=== PATIENT | female | born 1940 | race Caucasian/White ===

== ENCOUNTER 2023-09-27 17:09 | Inpatient (IN) | payer MEDICARE ==
[2023-09-27] MEDS ORDERED: LORazepam 2 MG/ML SYR.(CARPUJECT) ONE ×2 (17:15→20:03)
[2023-09-27 17:36] LABS: #Eosinphils 0.1 thou/uL (0.0-0.7); #Monocytes 0.2 thou/uL (0.11-0.59); #Neutrophils 9.1 thou/uL (1.40-6.50); %Basophils 0.4 % (0.0-1.0); %Eosinophils 0.6 % (0.0-10.0); %Lymphocytes 6.1 % (21.0-51.0); %Monocytes 2.4 % (0.0-10.0); %Neutrophils 90.2 % (42.0-75.0); Hematocrit 43.7 % (36.0-47.0); Hemoglobin 14.8 g/dL (12.0-16.0); Mean Corpuscular HGB CONC 33.9 g/dL (32.0-36.0); Mean Corpuscular Hemoglobin 31.1 pg (27.0-31.0); Mean Corpuscular Volume 91.8 fl (78.0-98.0); Mean Platelet Volume 12.4 fL (7.4-10.4); Platelet Count 163 10x3/uL (130-400); Red Blood Cell (RBC) Count 4.76 mill/uL (4.20-5.40); White Blood Cell (WBC) Count 10.1 10x3/uL (4.8-10.8)
[2023-09-27 18:28] LABS: ALT (SGPT) 9 U/L (8-55); AST (SGOT) 11 U/L (5-34); Acetaminophen Less than 10 mcg/mL (10.0-30.0); Albumin 4.3 g/dL (3.4-4.8); Alcohol Less than 10.0 mg/dL (Less than 10); Alkaline Phosphatase 116 U/L (40-110); Anion Gap 19 mmol/L (10-20); BUN (Urea Nitrogen) 30 mg/dL (9.8-20.1); Bilirubin, Total 0.4 mg/dL (0.2-1.2); Calc. Creatinine Clearance 0 mL/min (70-130); Calcium 9.8 mg/dL (7.8-10.44); Carbon Dioxide 17 mmol/L (23-31); Chloride 97 mmol/L (98-107); Estimated GFR 20; Globulin 3.6 g/dL (2.4-3.5); Lipase 17 U/L (8-78); Potassium 4.1 mmol/L (3.5-5.1); Protein, Total 7.9 g/dL (5.8-8.1); Salicylate Less than 8.0 mg/dL (15.0-30.0); Sodium 129 mmol/L (136-145)
[2023-09-27 18:34] LABS: Glucose 647 mg/dL (83-110); Troponin I 0.061 ng/mL (< 0.028)
[2023-09-27 18:46] LABS: Actual Bicarbonate (HCO3v) 15.8 mEq/L (22-28); Base Excess -9.1 mEq/L (-2.0 to +3.0); Calcium, Ionized (venous) 1.13 mmol/L (1.16-1.32); Chloride (VBG) 96 mmol/L (98-106); Hematocrit-VBG 43 % (36.0-47.0); Hemoglobin (Hb) 14.7 g/dL (11.7-16.1); Potassium (VBG) 4.05 mmol/L (3.70-5.30); Sodium 133 mmol/L (133-146); pH (venous) 7.317 (7.32-7.43)
[2023-09-27] MEDS ORDERED: Potassium Chloride 20 MEQ/100 ML PREMIX BAG ONE (18:58)
[2023-09-27] MEDS ORDERED: INSULIN REGULAR IN 0.9 % NACL 100 UNITS/100 ML BAG ONE (19:01)
[2023-09-27 19:28] LABS: Amphetamine Not Detected (NotDetected); Barbiturates Screen Not Detected (NotDetected); Benzodiazepine Screen Not Detected (NotDetected); Cocaine Metabolite Screen Not Detected (NotDetected); Methadone Not Detected (NotDetected); Methamphetamine Not Detected (NotDetected); Opiate Screen Not Detected (NotDetected); Oxycodone Screen Not Detected (NotDetected); Phencyclidine (PCP) Not Detected (NotDetected); THC/Cannabinoid Screen Not Detected (NotDetected); Tricyclic Screen Not Detected (NotDetected)
[2023-09-27 19:44] LABS: Bacteria/HPF None Seen HPF (None Seen); Bilirubin Negative (Negative); Blood, Urine 2+ (Negative); CAUTI Indications for Culture Alt mental st,lethar; Clarity Clear (Clear); Glucose, Urine (Dipstick) Greater than 1000 mg/dL (Negative); Ketone, Urine 20 mg/dL (Negative); Leukocyte 25 Leu/uL (Negative); Nitrite Negative (Negative); Protein, Urine (Dipstick) 200 mg/dL (Neg-Trace); RBC/HPF 0-3 HPF (0-3); Specific Gravity, Urine 1.022 (1.002-1.036); Squamous Epithelial 0-3 HPF (0-3); Urobilinogen Normal mg/dL (Less than 2)
[2023-09-27 19:46] LABS: Urine Culture Reflex No No
[2023-09-27] MEDS ORDERED: NS 0.9% w/ 40 MEQ KCL 1,000 ML IV SCH (20:00)
[2023-09-27] MEDS ORDERED: HUMULIN R 100 UNITS in Sodium Chloride 0.9% 100 ML IVPB SCH ×2 (20:00→20:15)
[2023-09-27] MEDS ORDERED: Sodium Chloride 0.9% 1,000 ML IV PRN ×4 (20:11)
[2023-09-27] MEDS ORDERED: Ondansetron PF 4 MG/2 ML Vial IVP PRN (20:11)
[2023-09-27] MEDS ORDERED: Acetaminophen 650 MG Suppository PR PRN (20:11)
[2023-09-27] MEDS ORDERED: NS 0.9% w/ 20 MEQ KCL 1,000 ML IV PRN ×2 (20:11)
[2023-09-27] MEDS ORDERED: Dextrose 50% Abboject 50 ML SYRINGE SLOW IVP PRN (20:11)
[2023-09-27] MEDS ORDERED: Dextrose 5 %-0.45 % NaCl 1,000 ML IV PRN (20:11)
[2023-09-27] MEDS ORDERED: D5 1/2 NS w/20 mEq KCL 1,000 ML IV PRN (20:11)
[2023-09-27] MEDS ORDERED: Electrolyte Replacement Protocol 1 EACH IVPB SCH (20:11)
[2023-09-27 22:12] LABS: Lactic Acid 2.3 mmol/L (0.5-2.2)
[2023-09-27 22:17] LABS: Anion Gap 16 mmol/L (10-20); BUN (Urea Nitrogen) 29 mg/dL (9.8-20.1); Calc. Creatinine Clearance 0 mL/min (70-130); Calcium 9.1 mg/dL (7.8-10.44); Carbon Dioxide 17 mmol/L (23-31); Chloride 104 mmol/L (98-107); Estimated GFR 22; Magnesium 1.9 mg/dL (1.6-2.6); Potassium 3.5 mmol/L (3.5-5.1); Sodium 133 mmol/L (136-145)
[2023-09-27 22:24] LABS: Glucose 511 mg/dL (83-110)
[2023-09-27 23:20] VITALS: BMI 26.9
[2023-09-27] MEDS: Lactated Ringer's 1,000 ML IV SCH (23:21)
[2023-09-27] MEDS ORDERED: Magnesium 2 GM/50 ML(in water) 2 GM in Premix 1 BAG IVPB SCH (23:59)
[2023-09-28] MEDS: Potassium Chloride 20 MEQ in Premix 1 BAG IVPB SCH ×2 (01:12→03:21)
[2023-09-28 01:30] LABS: Anion Gap 14 mmol/L (10-20); BUN (Urea Nitrogen) 28 mg/dL (9.8-20.1); Calc. Creatinine Clearance 26 mL/min (70-130); Carbon Dioxide 16 mmol/L (23-31); Chloride 108 mmol/L (98-107); Estimated GFR 25; Glucose 364 mg/dL (83-110); Potassium 3.4 mmol/L (3.5-5.1); Sodium 135 mmol/L (136-145)
[2023-09-28 05:35] LABS: Anion Gap 15 mmol/L (10-20); BUN (Urea Nitrogen) 28 mg/dL (9.8-20.1); Calc. Creatinine Clearance 27 mL/min (70-130); Calcium 9.2 mg/dL (7.8-10.44); Carbon Dioxide 14 mmol/L (23-31); Chloride 110 mmol/L (98-107); Estimated GFR 26; Glucose 320 mg/dL (83-110); Potassium 3.8 mmol/L (3.5-5.1); Sodium 135 mmol/L (136-145)
[2023-09-28] MEDS: Heparin 5,000 UNITS/ML VIAL SC SCH ×2 (08:22→20:42)
[2023-09-28] MEDS: Lactated Ringer's 1,000 ML IV SCH (08:22)
[2023-09-28] MEDS: Famotidine/PF 20 mg/2ml Vial SLOW IVP SCH (08:22)
[2023-09-28] MEDS ORDERED: FLU VACC QS2023(65UP)/MF59C/PF 60 MCG/0.5 ML SYRINGE IM ONE (09:00)
[2023-09-28] MEDS ORDERED: Dextrose 5% in Water 1,000 ML IV PRN (11:30)
[2023-09-28] MEDS ORDERED: Glucagon 1 MG/ML KIT IM PRN (11:30)
[2023-09-28] MEDS ORDERED: HumaLOG 300 UNITS/3 ML VIAL SC PRN (11:30)
[2023-09-28] MEDS: Dextrose 50% Abboject 50 ML SYRINGE IVP PRN ×2 (17:27→17:28)
[2023-09-28] MEDS ORDERED: Dextrose 5 % And 0.9 % NaCl 1,000 ML IV SCH (17:30)
[2023-09-28 17:42] LABS: #Monocytes 0.8 thou/uL (0.11-0.59); #Neutrophils 9.9 thou/uL (1.40-6.50); %Basophils 0.3 % (0.0-1.0); %Lymphocytes 15.5 % (21.0-51.0); %Monocytes 6.3 % (0.0-10.0); %Neutrophils 77.4 % (42.0-75.0); Hematocrit 38.1 % (36.0-47.0); Hemoglobin 12.9 g/dL (12.0-16.0); Mean Corpuscular HGB CONC 33.9 g/dL (32.0-36.0); Mean Corpuscular Hemoglobin 30.7 pg (27.0-31.0); Mean Corpuscular Volume 90.7 fl (78.0-98.0); Mean Platelet Volume 11.8 fL (7.4-10.4); Platelet Count 222 10x3/uL (130-400); RBC Distribution Width 12.4 % (11.5-14.5); White Blood Cell (WBC) Count 12.7 10x3/uL (4.8-10.8)
[2023-09-28] MEDS ORDERED: Aspirin Chewable 81 MG TAB PO SCH (17:45)
[2023-09-28 18:15] LABS: Anion Gap 14 mmol/L (10-20); BUN (Urea Nitrogen) 27 mg/dL (9.8-20.1); Calc. Creatinine Clearance 31 mL/min (70-130); Calcium 9.1 mg/dL (7.8-10.44); Carbon Dioxide 16 mmol/L (23-31); Chloride 111 mmol/L (98-107); Estimated GFR 31; Glucose 232 mg/dL (83-110); Potassium 3.8 mmol/L (3.5-5.1); Sodium 137 mmol/L (136-145)
[2023-09-28] MEDS: Dextrose 5 % And 0.9 % NaCl 1,000 ML IV SCH (20:12)
[2023-09-28] MEDS: HumaLOG 300 UNITS/3 ML VIAL SC PRN (20:42)
[2023-09-29 04:08] LABS: Anion Gap 12 mmol/L (10-20); BUN (Urea Nitrogen) 25 mg/dL (9.8-20.1); Calc. Creatinine Clearance 32 mL/min (70-130); Carbon Dioxide 17 mmol/L (23-31); Chloride 113 mmol/L (98-107); Estimated GFR 32; Glucose 137 mg/dL (83-110); Potassium 3.4 mmol/L (3.5-5.1); Sodium 139 mmol/L (136-145)
[2023-09-29] MEDS: Dextrose 5 % And 0.9 % NaCl 1,000 ML IV SCH ×2 (04:12→22:37)
[2023-09-29] MEDS ORDERED: Potassium Chloride 20 MEQ TAB PO SCH (08:00)
[2023-09-29] MEDS: Famotidine/PF 20 mg/2ml Vial SLOW IVP SCH (08:11)
[2023-09-29] MEDS: Heparin 5,000 UNITS/ML VIAL SC SCH ×2 (08:11→21:50)
[2023-09-29] MEDS ORDERED: Aspirin Chewable 81 MG TAB PO SCH (09:00)
[2023-09-29] MEDS: HumaLOG 300 UNITS/3 ML VIAL SC PRN ×3 (13:28→21:57)
[2023-09-29] MEDS ORDERED: hydrALAZINE 25 MG TAB PO SCH (13:45)
[2023-09-29] MEDS: Simvastatin 10 MG TAB PO SCH (21:50)
[2023-09-29] MEDS: hydrALAZINE 25 MG TAB PO SCH (21:50)
[2023-09-30] MEDS ORDERED: Dextrose 5% in Water 1,000 ML IV PRN (02:02)
[2023-09-30] MEDS ORDERED: Ondansetron ODT 4 MG TAB PO PRN (04:18)
[2023-09-30] MEDS: Ondansetron ODT 4 MG TAB PO PRN ×2 (04:39→19:37)
[2023-09-30] MEDS: HumaLOG 300 UNITS/3 ML VIAL SC PRN ×4 (04:46→17:14)
[2023-09-30 06:26] LABS: Anion Gap 12 mmol/L (10-20); BUN (Urea Nitrogen) 21 mg/dL (9.8-20.1); Calc. Creatinine Clearance 31 mL/min (70-130); Calcium 8.7 mg/dL (7.8-10.44); Carbon Dioxide 21 mmol/L (23-31); Chloride 107 mmol/L (98-107); Estimated GFR 31; Glucose 236 mg/dL (83-110); Potassium 3.5 mmol/L (3.5-5.1); Sodium 136 mmol/L (136-145)
[2023-09-30] MEDS ORDERED: Potassium Chloride 20 MEQ TAB PO SCH (08:00)
[2023-09-30] MEDS: Heparin 5,000 UNITS/ML VIAL SC SCH ×2 (09:00→21:15)
[2023-09-30] MEDS: Losartan 25 MG TAB PO SCH (09:00)
[2023-09-30] MEDS: Acetaminophen 325 MG TAB PO PRN (09:00)
[2023-09-30] MEDS: Aspirin 81 mg Enteric Coated Tablet PO SCH (09:02)
[2023-09-30] MEDS: Fluticasone Propionate Nasal Spray 16 gm Bottle NASAL SCH (09:02)
[2023-09-30] MEDS: hydrALAZINE 25 MG TAB PO SCH ×2 (09:02→21:15)
[2023-09-30] MEDS: Famotidine/PF 20 mg/2ml Vial SLOW IVP SCH (09:19)
[2023-09-30] MEDS ORDERED: Sodium Chloride Nasal 15 GM TUBE EA NARE PRN (12:33)
[2023-09-30] MEDS ORDERED: Sodium Chloride 0.65% Nasal 44 ML BOT EA NARE PRN (19:49)
[2023-09-30] MEDS: Simvastatin 10 MG TAB PO SCH (21:15)
[2023-10-01] MEDS: HumaLOG 300 UNITS/3 ML VIAL SC PRN ×5 (01:13→21:25)
[2023-10-01 06:12] LABS: Anion Gap 12 mmol/L (10-20); BUN (Urea Nitrogen) 18 mg/dL (9.8-20.1); Calc. Creatinine Clearance 28 mL/min (70-130); Calcium 8.6 mg/dL (7.8-10.44); Carbon Dioxide 19 mmol/L (23-31); Chloride 107 mmol/L (98-107); Estimated GFR 27; Glucose 278 mg/dL (83-110); Potassium 3.6 mmol/L (3.5-5.1); Sodium 134 mmol/L (136-145)
[2023-10-01] MEDS: Aspirin 81 mg Enteric Coated Tablet PO SCH (09:15)
[2023-10-01] MEDS: Famotidine/PF 20 mg/2ml Vial SLOW IVP SCH (09:16)
[2023-10-01] MEDS: Fluticasone Propionate Nasal Spray 16 gm Bottle NASAL SCH (09:16)
[2023-10-01] MEDS: Loratadine 10 MG TAB PO SCH (09:19)
[2023-10-01] MEDS: Losartan 25 MG TAB PO SCH (09:19)
[2023-10-01] MEDS: hydrALAZINE 25 MG TAB PO SCH ×2 (09:19→21:26)
[2023-10-01] MEDS: Pioglitazone HCl 15 MG TAB PO SCH (09:20)
[2023-10-01] MEDS: Heparin 5,000 UNITS/ML VIAL SC SCH ×2 (09:21→21:26)
[2023-10-01] MEDS ORDERED: Famotidine 20 MG TAB PO SCH (10:30)
[2023-10-01] MEDS: Glimepiride 4 MG TAB PO SCH (17:44)
[2023-10-01] MEDS: Insulin Glargine 30 UNITS/0.3 ML VIAL SC SCH (21:25)
[2023-10-01] MEDS: Simvastatin 10 MG TAB PO SCH (21:27)
[2023-10-02 04:30] LABS: #Basophils 0.1 thou/uL (0.0-0.2); #Eosinphils 0.2 thou/uL (0.0-0.7); #Monocytes 0.6 thou/uL (0.11-0.59); %Basophils 0.6 % (0.0-1.0); %Eosinophils 2.6 % (0.0-10.0); %Lymphocytes 23.6 % (21.0-51.0); %Monocytes 7.7 % (0.0-10.0); %Neutrophils 65.1 % (42.0-75.0); Hematocrit 38.3 % (36.0-47.0); Mean Corpuscular HGB CONC 33.9 g/dL (32.0-36.0); Mean Corpuscular Hemoglobin 30.2 pg (27.0-31.0); Mean Corpuscular Volume 89.1 fl (78.0-98.0); Mean Platelet Volume 12.2 fL (7.4-10.4); Platelet Count 219 10x3/uL (130-400); RBC Distribution Width 12.8 % (11.5-14.5); White Blood Cell (WBC) Count 7.7 10x3/uL (4.8-10.8)
[2023-10-02 04:40] LABS: Hemoglobin A1c 10.9 % (4.0-6.0)
[2023-10-02 04:59] LABS: Anion Gap 13 mmol/L (10-20); BUN (Urea Nitrogen) 21 mg/dL (9.8-20.1); Calc. Creatinine Clearance 28 mL/min (70-130); Calcium 8.7 mg/dL (7.8-10.44); Carbon Dioxide 20 mmol/L (23-31); Chloride 108 mmol/L (98-107); Estimated GFR 27; Glucose 128 mg/dL (83-110); Potassium 3.6 mmol/L (3.5-5.1); Sodium 137 mmol/L (136-145)
[2023-10-02] MEDS: Famotidine 20 MG TAB PO SCH (10:55)
[2023-10-02] MEDS: Glimepiride 4 MG TAB PO SCH ×2 (10:55→16:49)
[2023-10-02] MEDS: Aspirin 81 mg Enteric Coated Tablet PO SCH (10:55)
[2023-10-02] MEDS: Loratadine 10 MG TAB PO SCH (10:55)
[2023-10-02] MEDS: hydrALAZINE 25 MG TAB PO SCH ×2 (10:55→20:46)
[2023-10-02] MEDS: Insulin Glargine 30 UNITS/0.3 ML VIAL SC SCH ×2 (10:56→20:46)
[2023-10-02] MEDS: Acetaminophen 325 MG TAB PO PRN ×3 (10:56→21:01)
[2023-10-02] MEDS: Heparin 5,000 UNITS/ML VIAL SC SCH ×2 (10:56→20:46)
[2023-10-02] MEDS: Fluticasone Propionate Nasal Spray 16 gm Bottle NASAL SCH (10:57)
[2023-10-02] MEDS: Losartan 25 MG TAB PO SCH (12:13)
[2023-10-02] MEDS: Pioglitazone HCl 15 MG TAB PO SCH (12:13)
[2023-10-02] MEDS: HumaLOG 300 UNITS/3 ML VIAL SC PRN (12:50)
[2023-10-02] MEDS: Simvastatin 10 MG TAB PO SCH (20:46)
[2023-10-03 06:37] LABS: Anion Gap 13 mmol/L (10-20); BUN (Urea Nitrogen) 21 mg/dL (9.8-20.1); Calc. Creatinine Clearance 27 mL/min (70-130); Calcium 9.1 mg/dL (7.8-10.44); Carbon Dioxide 21 mmol/L (23-31); Chloride 110 mmol/L (98-107); Estimated GFR 25; Glucose 145 mg/dL (83-110); Potassium 3.6 mmol/L (3.5-5.1); Sodium 140 mmol/L (136-145)
[2023-10-03] MEDS: Heparin 5,000 UNITS/ML VIAL SC SCH ×2 (08:34→20:01)
[2023-10-03] MEDS: Glimepiride 4 MG TAB PO SCH ×2 (08:34→16:23)
[2023-10-03] MEDS: Aspirin 81 mg Enteric Coated Tablet PO SCH (08:35)
[2023-10-03] MEDS: Insulin Glargine 30 UNITS/0.3 ML VIAL SC SCH ×2 (08:35→20:01)
[2023-10-03] MEDS: hydrALAZINE 25 MG TAB PO SCH ×2 (08:35→19:37)
[2023-10-03] MEDS: Fluticasone Propionate Nasal Spray 16 gm Bottle NASAL SCH (08:35)
[2023-10-03] MEDS: Famotidine 20 MG TAB PO SCH (08:35)
[2023-10-03] MEDS: Ondansetron ODT 4 MG TAB PO PRN (13:17)
[2023-10-03] MEDS: Simvastatin 10 MG TAB PO SCH (19:37)
[2023-10-03] MEDS: Acetaminophen 325 MG TAB PO PRN (19:38)
[2023-10-04 08:40] LABS: Anion Gap 11 mmol/L (10-20); BUN (Urea Nitrogen) 19 mg/dL (9.8-20.1); Calc. Creatinine Clearance 27 mL/min (70-130); Calcium 8.9 mg/dL (7.8-10.44); Carbon Dioxide 23 mmol/L (23-31); Chloride 109 mmol/L (98-107); Estimated GFR 26; Glucose 77 mg/dL (83-110); Potassium 3.9 mmol/L (3.5-5.1); Sodium 139 mmol/L (136-145)
[2023-10-04] MEDS: Aspirin 81 mg Enteric Coated Tablet PO SCH (09:21)
[2023-10-04] MEDS: hydrALAZINE 25 MG TAB PO SCH ×2 (09:21→20:29)
[2023-10-04] MEDS: Glimepiride 4 MG TAB PO SCH ×2 (09:21→16:59)
[2023-10-04] MEDS: Loratadine 10 MG TAB PO SCH (09:21)
[2023-10-04] MEDS: Famotidine 20 MG TAB PO SCH (09:22)
[2023-10-04] MEDS: Insulin Glargine 30 UNITS/0.3 ML VIAL SC SCH ×2 (09:22→20:30)
[2023-10-04] MEDS: Fluticasone Propionate Nasal Spray 16 gm Bottle NASAL SCH (09:22)
[2023-10-04] MEDS: Heparin 5,000 UNITS/ML VIAL SC SCH ×2 (09:22→20:29)
[2023-10-04] MEDS: Simvastatin 10 MG TAB PO SCH (20:29)
[2023-10-04] MEDS: Acetaminophen 325 MG TAB PO PRN (20:30)
[2023-10-05 06:47] LABS: Anion Gap 11 mmol/L (10-20); BUN (Urea Nitrogen) 17 mg/dL (9.8-20.1); Calc. Creatinine Clearance 27 mL/min (70-130); Calcium 8.7 mg/dL (7.8-10.44); Carbon Dioxide 24 mmol/L (23-31); Chloride 108 mmol/L (98-107); Estimated GFR 26; Glucose 100 mg/dL (83-110); Potassium 3.8 mmol/L (3.5-5.1); Sodium 139 mmol/L (136-145)
[2023-10-05] MEDS: Glimepiride 4 MG TAB PO SCH ×2 (08:44→17:03)
[2023-10-05] MEDS: Heparin 5,000 UNITS/ML VIAL SC SCH ×2 (08:45→20:44)
[2023-10-05] MEDS: hydrALAZINE 25 MG TAB PO SCH ×2 (08:45→20:44)
[2023-10-05] MEDS: Famotidine 20 MG TAB PO SCH (08:45)
[2023-10-05] MEDS: Aspirin 81 mg Enteric Coated Tablet PO SCH (08:45)
[2023-10-05] MEDS: Fluticasone Propionate Nasal Spray 16 gm Bottle NASAL SCH (08:45)
[2023-10-05] MEDS: Insulin Glargine 30 UNITS/0.3 ML VIAL SC SCH ×2 (08:46→20:44)
[2023-10-05] MEDS: Acetaminophen 325 MG TAB PO PRN ×2 (09:10→20:44)
[2023-10-05] MEDS: HumaLOG 300 UNITS/3 ML VIAL SC PRN (17:05)
[2023-10-05] MEDS ORDERED: Melatonin 3 MG TAB PO PRN (19:36)
[2023-10-05] MEDS: Simvastatin 10 MG TAB PO SCH (20:44)
[2023-10-06 06:58] LABS: Anion Gap 12 mmol/L (10-20); BUN (Urea Nitrogen) 22 mg/dL (9.8-20.1); Calc. Creatinine Clearance 26 mL/min (70-130); Calcium 9.3 mg/dL (7.8-10.44); Carbon Dioxide 26 mmol/L (23-31); Chloride 105 mmol/L (98-107); Estimated GFR 24; Glucose 137 mg/dL (83-110); Potassium 4.1 mmol/L (3.5-5.1); Sodium 139 mmol/L (136-145)
[2023-10-06 07:14] VITALS: BP 148/80; TEMP 98.5
[2023-10-06] MEDS: Glimepiride 4 MG TAB PO SCH (08:46)
[2023-10-06] MEDS: Aspirin 81 mg Enteric Coated Tablet PO SCH (08:46)
[2023-10-06] MEDS: Insulin Glargine 30 UNITS/0.3 ML VIAL SC SCH (08:46)
[2023-10-06] MEDS: Loratadine 10 MG TAB PO SCH (08:46)
[2023-10-06] MEDS: hydrALAZINE 25 MG TAB PO SCH (08:46)
[2023-10-06] MEDS: Famotidine 20 MG TAB PO SCH (08:46)
[2023-10-06] MEDS: Fluticasone Propionate Nasal Spray 16 gm Bottle NASAL SCH (08:47)
[2023-10-06] MEDS: Heparin 5,000 UNITS/ML VIAL SC SCH (08:47)
[2023-10-06 09:19] LABS: Bacteria/HPF 2+ HPF (None Seen); Bilirubin Negative (Negative); Blood, Urine Negative (Negative); CAUTI Indications for Culture Dysuria,urgency,freq; Clarity Turbid (Clear); Glucose, Urine (Dipstick) Normal (Negative); Ketone, Urine Negative (Negative); Leukocyte 500 Leu/uL (Negative); Nitrite Negative (Negative); Protein, Urine (Dipstick) Negative (Neg-Trace); RBC/HPF 0-3 HPF (0-3); Specific Gravity, Urine 1.003 (1.002-1.036); Squamous Epithelial 0-3 HPF (0-3); Urobilinogen Normal mg/dL (Less than 2); WBC/HPF Greater than 50 HPF (0-3); pH, Urine 6.5 (5.0-9.0)
[2023-10-06 09:21] LABS: Urine Culture Reflex Yes Yes
[2023-10-06] MEDS ORDERED: Ciprofloxacin 500 MG TAB PO SCH (13:00)
== END 2023-10-06 14:44 | DRG 637 ==
LOC: ERS 17:09 → IMCU/EMU 19:21 → 2NO 09-29 16:27 → T4-A 10-02 14:15
PROVIDERS: ADMIT Student in an Organized Health Care Education/Training Program; ATTEND Hospitalist
DX: E11.00 Type 2 diabetes mellitus with hyperosmolarity without nonketotic hyperglycemic-hyperosmolar coma (NKHHC) (principal); G93.41 Metabolic encephalopathy; G93.6 Cerebral edema; N17.9 Acute kidney failure, unspecified; R65.10 Systemic inflammatory response syndrome (SIRS) of non-infectious origin without acute organ dysfunction; E87.1 Hypo-osmolality and hyponatremia; N39.0 Urinary tract infection, site not specified; E86.0 Dehydration; E11.42 Type 2 diabetes mellitus with diabetic polyneuropathy; N18.9 Chronic kidney disease, unspecified; I12.9 Hypertensive chronic kidney disease with stage 1 through stage 4 chronic kidney disease, or unspecified chronic kidney disease; F03.90 Unspecified dementia, unspecified severity, without behavioral disturbance, psychotic disturbance, mood disturbance, and anxiety; Z79.82 Long term (current) use of aspirin; Z79.899 Other long term (current) drug therapy
CPT/HCPCS: 36415; 36416; 70450; 71045; 80048; 80053; 80306; 80307; 81001; 82010; 82805; 83036; 83605; 83690; 83735; 83930; 84100; 84484; 85025; 87040; 87077; 87086; 93005; 93306; 96361; 96365; 96366; 96374; 96375; J1644; J1815; J2060; J2405; J3475; J3480; J3490; J7042; J7120; J7999; Q0162; S0028

== ENCOUNTER 2024-10-02 07:54 | Observation (INO) | payer MEDICARE ==
[2024-10-02 08:35] LABS: #Basophils 0.07 10x3/uL (0.0-0.2); %Basophils 0.7 % (0.0-1.0); %Eosinophils 0.5 % (0.0-10.0); %Lymphocytes 8.8 % (21.0-51.0); %Monocytes 5.6 % (0.0-10.0); Hematocrit 33.4 % (36.0-47.0); Hemoglobin 10.8 g/dL (12.0-16.0); Mean Corpuscular HGB CONC 32.3 g/dL (32.0-36.0); Mean Corpuscular Hemoglobin 28.3 pg (27.0-31.0); Mean Corpuscular Volume 87.7 fL (78.0-98.0); Mean Platelet Volume 9.2 fL (7.4-10.4); Platelet Count 539 10x3/uL (130-400); Red Blood Cell (RBC) Count 3.81 mill/uL (4.20-5.40)
[2024-10-02 08:52] LABS: ALT (SGPT) 6 U/L (8-55); AST (SGOT) 10 U/L (5-34); Albumin 2.5 g/dL (3.4-4.8); Alkaline Phosphatase 65 U/L (40-110); Anion Gap 15 mmol/L (10-20); BUN (Urea Nitrogen) 16 mg/dL (9.8-20.1); Bilirubin, Total 0.3 mg/dL (0.2-1.2); Calc. Creatinine Clearance 0 mL/min (70-130); Calcium 8.4 mg/dL (7.8-10.44); Carbon Dioxide 18 mmol/L (23-31); Chloride 108 mmol/L (98-107); Estimated GFR 33; Glucose 166 mg/dL (83-110); Magnesium 1.8 mg/dL (1.6-2.6); Potassium 3.4 mmol/L (3.5-5.1); Protein, Total 6.5 g/dL (5.8-8.1); Sodium 138 mmol/L (136-145)
[2024-10-02 08:58] LABS: Troponin I 0.035 ng/mL (< 0.028)
[2024-10-02] MEDS ORDERED: Meclizine HCl 25 MG TAB ONE (09:52)
[2024-10-02] MEDS ORDERED: Iopamidol-370 76% 500 ML MDV (1 ML CHARGE) ONE (10:04)
[2024-10-02 10:34] LABS: Bacteria/HPF 2+ HPF (None Seen); Bilirubin Negative (Negative); Blood, Urine Negative (Negative); CAUTI Indications for Culture Acute Hematuria; Clarity Turbid (Clear); Glucose, Urine (Dipstick) Normal (Negative); Ketone, Urine Negative (Negative); Leukocyte 500 Leu/uL (Negative); Nitrite 2+ (Negative); Protein, Urine (Dipstick) 30 mg/dL (Neg-Trace); RBC/HPF 0-3 HPF (0-3); Specific Gravity, Urine 1.012 (1.002-1.036); Squamous Epithelial 0-3 HPF (0-3); Urobilinogen Normal mg/dL (Less than 2); WBC/HPF Greater than 50 HPF (0-3); pH, Urine 5.5 (5.0-9.0)
[2024-10-02 10:39] LABS: Urine Culture Reflex Yes Yes
[2024-10-02] MEDS ORDERED: OLANZapine 10 MG VIAL IM ONE (12:08)
[2024-10-02] MEDS ORDERED: LevoFLOXacin 750 mg/D5W 150 ml Premix Bag ONE (12:08)
[2024-10-02] MEDS ORDERED: Sterile Water 10 ML ONE (12:14)
[2024-10-02] MEDS ORDERED: Acetaminophen 325 MG TAB PO PRN (16:39)
[2024-10-02] MEDS ORDERED: Senokot S 8.6-50 MG TAB PO PRN (16:39)
[2024-10-02] MEDS ORDERED: hydrALAZINE 20 MG/ML VIAL SLOW IVP PRN (16:39)
[2024-10-02] MEDS ORDERED: Ondansetron ODT 4 MG TAB PO PRN (16:39)
[2024-10-02] MEDS ORDERED: Bisacodyl 5 MG TAB PO PRN (16:39)
[2024-10-02] MEDS ORDERED: Acetaminophen 650 MG Suppository PR PRN (16:39)
[2024-10-02] MEDS ORDERED: Ondansetron PF 4 MG/2 ML Vial IVP PRN (16:39)
[2024-10-02] MEDS ORDERED: Dextrose 5% in Water 1,000 ML IV PRN (17:08)
[2024-10-02] MEDS ORDERED: Insulin Regular, Human 100 UNIT/ML 10 ML VIAL SC PRN ×2 (17:08)
[2024-10-02] MEDS ORDERED: Dextrose 50% Abboject 50 ML SYRINGE SLOW IVP PRN (17:08)
[2024-10-02] MEDS ORDERED: Glucagon 1 MG/ML KIT IM PRN (17:08)
[2024-10-02] MEDS: cefTRIAXone\\ROCEPHIN 1 GM in Sodium Chloride 0.9% 100 ML IVPB SCH (20:21)
[2024-10-02 20:37] VITALS: BMI 21.7
[2024-10-02] MEDS: Atorvastatin Calcium 40 MG TAB PO SCH (21:08)
[2024-10-03 00:34] LABS: Troponin I 0.049 ng/mL (< 0.028)
[2024-10-03 04:42] LABS: #Basophils 0.04 10x3/uL (0.0-0.2); %Basophils 0.6 % (0.0-1.0); %Eosinophils 2.2 % (0.0-10.0); %Lymphocytes 14.2 % (21.0-51.0); %Monocytes 7.4 % (0.0-10.0); %Neutrophils 75.3 % (42.0-75.0); Hematocrit 30.8 % (36.0-47.0); Hemoglobin 9.9 g/dL (12.0-16.0); Mean Corpuscular HGB CONC 32.1 g/dL (32.0-36.0); Mean Corpuscular Hemoglobin 28.4 pg (27.0-31.0); Mean Corpuscular Volume 88.5 fL (78.0-98.0); Mean Platelet Volume 9.6 fL (7.4-10.4); Platelet Count 455 10x3/uL (130-400); RBC Distribution Width 14.1 % (11.5-14.5); Red Blood Cell (RBC) Count 3.48 mill/uL (4.20-5.40)
[2024-10-03 05:07] LABS: Anion Gap 14 mmol/L (10-20); BUN (Urea Nitrogen) 20 mg/dL (9.8-20.1); Calc. Creatinine Clearance 26 mL/min (70-130); Calcium 8.5 mg/dL (7.8-10.44); Carbon Dioxide 17 mmol/L (23-31); Cardiac Risk 2.7 (Less than 4.5); Chloride 112 mmol/L (98-107); Cholesterol 99 mg/dl (< 200 Desired); Estimated GFR 32; Glucose 133 mg/dL (83-110); HDL Cholesterol 37 mg/dL (>60 Neg Risk); LDL Cholesterol, Calculated 47 mg/dL; Potassium 3.4 mmol/L (3.5-5.1); Sodium 140 mmol/L (136-145); Triglycerides 74 mg/dL (Less than 150)
[2024-10-03] MEDS: Potassium Bicarbonate/Cit Ac 20 MEQ TAB PO SCH (08:55)
[2024-10-03] MEDS: Aspirin 81 mg Enteric Coated Tablet PO SCH (11:04)
[2024-10-03] MEDS: Enoxaparin 40 MG (0.4 mL) SYRINGE SC SCH (11:05)
[2024-10-03 12:17] VITALS: BP 142/66; TEMP 97.4
[2024-10-04] MEDS ORDERED: Enoxaparin 30 MG (0.3 mL) SYRINGE SC SCH (09:00)
[2024-10-05] MEDS ORDERED: FLU (Fluad Triv) TS24-25 (65UP)/MF59C/PF 45 MCG/0.5 ML Syringe IM ONE (16:30)
== END 2024-10-03 14:26 | disposition home or self-care (01) ==
LOC: ERS 07:54 → ERHOLD 12:06 → 2SE 15:33
PROVIDERS: ADMIT Internal Medicine; ATTEND Internal Medicine
PROC: B24BZZZ Ultrasonography of Heart with Aorta (ICD-10-PCS; principal; 2024-10-03)
DX: R42 Dizziness and giddiness (principal); N30.00 Acute cystitis without hematuria; I10 Essential (primary) hypertension; E11.9 Type 2 diabetes mellitus without complications; F03.90 Unspecified dementia, unspecified severity, without behavioral disturbance, psychotic disturbance, mood disturbance, and anxiety; Z88.0 Allergy status to penicillin; Z79.82 Long term (current) use of aspirin; Z79.84 Long term (current) use of oral hypoglycemic drugs; Z79.2 Long term (current) use of antibiotics; Z79.899 Other long term (current) drug therapy
CPT/HCPCS: 51701; 70496; 70498; 70551; 71045; 80048; 80061; 81001; 83735; 84484 ×3; 85025; 87077; 87086; 87186; 93005; 93306; 96365; 96366; 96372; 99285; J0696; J1956; Q9967; 36415; 80053; 84443; 96375; G0378